=== PATIENT | male | born 1970 | race Hispanic/Latino ===

== ENCOUNTER 2022-09-04 10:49 | Emergency (ER) | payer OTHER ==
[~2022-09-04] VITALS: Ht 172.7 cm; Wt 81.2 kg
[2022-09-04] MEDS ORDERED: MORPHINE 4 MG SYG IM ONE (11:00)
[2022-09-04] MEDS ORDERED: ONDANSETRON 4MG INJ IV ONE (11:00)
[2022-09-04] MEDS ORDERED: MORPHINE 2 MG SYG IM ONE (12:30)
[2022-09-04] MEDS ORDERED: LORAZEPAM 2 MG/ML 1 ML VIAL IM ONE ×2 (12:30)
[2022-09-04 12:46] VITALS: BP 111/68
== END 2022-09-04 14:04 | disposition home or self-care (01) ==
LOC: EDH 10:49
DX: S43.004A Unspecified dislocation of right shoulder joint, initial encounter (principal); X50.9XXA Other and unspecified overexertion or strenuous movements or postures, initial encounter; Y93.89 Activity, other specified; Y92.89 Other specified places as the place of occurrence of the external cause; Y99.8 Other external cause status
CPT/HCPCS: 99284; 96374; 73030 ×2; 96372 ×3; J2405; J2060; J2270